=== PATIENT | male | born 1950 | race Caucasian/White ===

== ENCOUNTER → 2017-11-17 | Outpatient (CLI) | payer OTHER ==
[~2017-11-17] MED LIST: IOPAMIDOL 370 MG/ML 200 ML INFUS..BTL INJ ONE; SODIUM CHLORIDE 0.9% 50ML 50 ML ONE
[2017-11-17 12:38] LABS: BLOOD UREA NITROGEN 30 mg/dL (8-26); BUN/CREATININE RATIO 30 (6-25); EST GLOMERULAR FILTRATION RATE > 60 ML/MIN (60-)
--- NOTE | 2017-11-17 13:22 | Diagnostic Imaging Report ---
EXAM: CT Abdomen and Pelvis WITH contrast INDICATION: Abdominal Pain COMPARISON: None. TECHNIQUE: Abdomen and pelvis were scanned utilizing a multidetector helical scanner from the lung base to the pubic symphysis after administration of IV contrast. Coronal and sagittal reformations were obtained. Routine protocol was performed. Scan was performed when during portal venous phase. COMPLICATIONS: None RADIATION DOSE: Total DLP: 170.5 mGy*cm Estimated effective dose: (DLP x 0.015 x size factor) mSv CTDIvol has been reviewed. It is below the limits set by the Radiation Protocol Committee (RPC). FINDINGS: LINES and TUBES: None. LOWER THORAX: Minimal dependent atelectasis. HEPATOBILIARY: Subcentimeter hepatic hypodensities are too small to characterize and likely represent cysts. There is a 1.9 cm left hepatic lobe cyst. No biliary ductal dilation. GALLBLADDER: No radio-opaque stones or sludge. No wall thickening. SPLEEN: No splenomegaly. PANCREAS: No focal masses or ductal dilatation. ADRENALS: No adrenal nodules KIDNEYS/URETERS: Kidneys enhance symmetrically. No evidence of hydronephrosis, solid mass, or stone. GI TRACT: No evidence of wall thickening or distension. PELVIC ORGANS/BLADDER: Unremarkable. LYMPH NODES: No lymphadenopathy. VESSELS: There is moderate atherosclerotic disease in the aorta and major arterial branches. PERITONEUM / RETROPERITONEUM: No free air or fluid. BONES AND SOFT TISSUES: There are degenerative changes in the lumbar spine. No evidence of suspicious bony lesion. CONCLUSION: No evidence of metastatic disease in the abdomen or pelvis. Signed by: Dr. Ne Batres MD on 11/17/2017 1:19 PM
--- NOTE | 2017-11-17 17:38 | Diagnostic Imaging Report ---
Bone Scan, delayed phase INDICATION: Prostate cancer; s/p prostatectomy in 2008. Now with rising PSA> COMPARISON: CT abdo/pelvis 11/17/2017 REPORT: Approximately 2 hours following intravenous administration of 26 mCi of Tc-99m MDP, delayed total body images in the anterior and posterior projections and selected spot images were obtained. Focal increased tracer in L5/S1 on the right, consistent with degenerative change. Otherwise, distribution of tracer activity is unremarkable throughout the skeletal system. No abnormal accumulation of tracer is seen in the soft tissues or urinary tract. The right kidney is ptotic with inferior pole at the right iliac crest. IMPRESSION: No scan evidence of metastatic bone disease. Signed by: Dr. Juany Damon M.D. on 11/17/2017 5:35 PM
== END ==
LOC: NM 10:39
PROVIDERS: ATTEND Urology
DX: C61 Malignant neoplasm of prostate (principal); R97.21 Rising PSA following treatment for malignant neoplasm of prostate
CPT/HCPCS: 36415; 74177; 78306; 82565; 84520; A9503; Q9967